=== PATIENT | male | born 1960 | race Caucasian/White ===

== ENCOUNTER 2019-05-26 07:58 | Day surgery (SDC) | payer OTHER, SELFPAY ==
--- NOTE | 2019-05-26 | PATH_ITS ---
[facility] Accession Number: [id number] . 01 Material submitted: . cecum - CECAL POLYP X2 . 02 Diagnosis: Cecum, Polyps x2, Biopsies: Tubular adenomas. V/05/27/2019 . 02 Electronically signed: . Meghan Cueto MD, Pathologist NPI- [id number] . 01 Gross description: . CECAL POLYP X2: Received in formalin are 4 fragment(s) of [place], soft tissue measuring 0.2 x 0.2 x 0.1 cm to 0.5 x 0.4 x 0.3 cm which is entirely submitted and submitted entirely in 1 cassette(s) /DMC /DMC . 02 Pathologist provided ICD-10: D12.0 . 02 CPT . 079265 Performed at: 01 [facility] [address] [id number] MD Bretin Cheney MD Phone: [phone] Performed at: 02 [facility] [address] [place], [place] [id number] MD Meghan Cueto MD Phone: [phone]
--- NOTE | 2019-05-26 07:47 | PM.HP.1 ---
History of Present Illness Date Patient Seen: 05/26/19 Chief complaint: [id number] Narrative: 59-year-old male who is here for colon polyp surveillance. No active GI symptoms at present. Prior colonoscopy report not available for review Patient History Social History household members: spouse Meds Home Medications Medication Instructions Recorded Confirmed Type aspirin [Aspir-81] 81 mg PO DAILY 05/26/19 05/26/19 History fenofibrate 145 mg PO DAILY 05/26/19 05/26/19 History lisinopril 5 mg PO DAILY 05/26/19 05/26/19 History metformin 500 mg PO BID 05/26/19 05/26/19 History rosuvastatin 10 mg PO DAILY 05/26/19 05/26/19 History Allergies Allergy/AdvReac Type Severity Reaction Status Date / Time No Known Drug Allergies Allergy Verified 05/26/19 08:34 Exam Narrative Exam Narrative: General: Patient is obese, not in apparent distress Cardiovascular: Regular rate and rhythm, no murmurs, rubs, or gallops; no evidence of edema; no palpable abdominal aortic aneurysm Gastrointestinal: Normoactive bowel sounds, soft, nontender, nondistended, no rebound tenderness, no hepatosplenomegaly, no evidence of hernia Assessment & Plan Assessment & Plan narrative: 59-year-old male here for colon polyp surveillance. No alarm symptoms at present Regarding the procedure(s), the risks and potential complications, benefits, and alternatives (including not doing the procedure) were discussed with the patient. The risks include but are not limited to bleeding, splenic injury, infection, perforation which may require surgical intervention, missed lesions, and adverse reactions to sedative medicines. After a question and answer period, the patient agreed to proceed with the procedure(s) and gives informed consent.
[2019-05-26 08:50] VITALS: BP 143/91; PULSE 72; RESP 16; TEMP 36.8; O2SAT 98; BMI 29.4
[2019-05-26] MEDS: SODIUM CHLORIDE 0.9% 1,000 ML 70 ML IV (08:58)
--- NOTE | 2019-05-26 09:37 | PM.OP.ENDO ---
Operative Date/Time/Diagnoses Date of procedure: 05/26/19 Procedure Notes Procedure in detail: Surgeon: Savage Barkley MD Procedure: Colonoscopy with polypectomy Preoperative diagnosis: Colon polyp surveillance Postoperative diagnosis: Cecal polyps x2 status post polypectomy; grade 1 internal hemorrhoids Medications: Conscious sedation using 6 mg IV of Midazolam and 100 mcg IV of Fentanyl Preanesthesia Assessment An H and P was performed/updated and the Px?s ASA class is 2. The procedure was discussed in detail with the patient. The potential risks and complications including infection, bleeding, missed lesions, perforation, need for surgery in case of perforation, prolonged hospital stay, and were explained. A brief question and answer period was allotted and once all questions were answered, informed consent was obtained. The patient was brought back to the procedure room and placed on standard monitoring. The patient?s vital signs were monitored continuously throughout the entire procedure. Prior to starting, a timeout was performed to confirm the patient?s identity, allergies, medications, and procedure. Procedure in detail The patient was placed in left lateral decubitus position and once adequate sedation was obtained a ERUM was performed. The digital rectal examination did not reveal any palpable lesions. The tip of the colonoscope was placed in the anal canal and advanced without difficulty all the way to the cecum which was identified by the appendiceal orifice and the ileocecal valve. Careful examination of all sierra of the colon was performed with irrigation of any residual stool. In the cecum there was note of 2 sessile polyps measuring 6-7 mm. These polyps were removed by means of cold snare. Resection and retrieval was complete with minimal bleeding. The remainder of the colon showed no further polyps Retroflexion was performed in the rectum which revealed grade 1 internal hemorrhoids The patient tolerated the procedure well and will be brought back to the recovery area to be discharged once criteria are met. The prep was judged to be good and adequate to identify polyps less than 5 mm. The withdrawal time was 9 minutes. The total physician intraservice time was 15 minutes. Complications There were no complications and estimated blood loss was minimal. Recommendations: Resume previous diet Continue outPx medications Follow up pathology results Repeat colonoscopy in 5 years An emergency contact number was given to the patient for any complications related to the procedure
[2019-05-26] MEDS: fentaNYL 250 MCG/5 ML INJ IV (09:47)
[2019-05-26] MEDS: MIDAZOLAM 5 MG/5 ML VIAL IV (09:47)
[2019-05-26 10:04] VITALS: BP 117/70; PULSE 63; RESP 14; TEMP 35.9; O2SAT 95
[2019-05-26 10:10] VITALS: BP 111/67; PULSE 66; RESP 12; O2SAT 94
[2019-05-26 10:15] VITALS: BP 113/61; PULSE 62; RESP 12; O2SAT 96
[2019-05-26 10:20] VITALS: BP 112/83; PULSE 64; RESP 16; TEMP 36.8; O2SAT 97
[2019-05-26 10:29] VITALS: BP 129/83; PULSE 71; RESP 15; TEMP 36.6; O2SAT 96
== END 2019-05-26 10:38 | disposition home or self-care (01) ==
PROVIDERS: Family Provider Internal Medicine; PCP Internal Medicine; Visit Provider Internal Medicine Gastroenterology
PROC: 0DJD8ZZ Inspection of Lower Intestinal Tract, Via Natural or Artificial Opening Endoscopic (ICD-10-PCS; CPT 45378; principal; 2019-05-26 09:30)
DX: Z86.010 Personal history of colon polyps (principal); D12.0 Benign neoplasm of cecum; K64.0 First degree hemorrhoids; E66.9 Obesity, unspecified; Z68.29 Body mass index [BMI] 29.0-29.9, adult
CPT/HCPCS: 45385; J2250; J3010

== ENCOUNTER → 2020-04-28 08:10 | Outpatient (CLI) | payer OTHER, SELFPAY ==
[2020-04-28 09:51] LABS: Cholesterol 135 mg/dL (140-199); HDL Cholesterol 31 mg/dL (40-60); LDL Cholesterol Calculated 48 mg/dL (<100); Triglycerides 280 mg/dL (35-150)
[2020-04-28 09:55] LABS: Vitamin D 25 Hydroxy (D3) 30.7 ng/mL (30.0-100.0)
[2020-04-28 10:30] LABS: Microalbumin Urine Random 11.8 mg/dL (0-1.6)
[2020-04-28 10:35] LABS: Creatinine Urine Random 199.9 mg/dL
[2020-04-28 10:53] LABS: Hemoglobin A1C% w Est Avg Glu 8.1 % (4.0-6.0)
== END ==
PROVIDERS: Family Provider Internal Medicine; PCP Student in an Organized Health Care Education/Training Program; Referring Provider Student in an Organized Health Care Education/Training Program; Visit Provider Student in an Organized Health Care Education/Training Program
DX: E11.9 Type 2 diabetes mellitus without complications (principal); E55.9 Vitamin D deficiency, unspecified
CPT/HCPCS: 36415; 80061; 82043; 82306; 82570; 83036

== ENCOUNTER → 2020-05-08 09:37 | Outpatient (CLI) | payer OTHER, SELFPAY ==
--- NOTE | 2020-05-08 09:38 | DI.US.S_ITS ---
PROCEDURE: US THYROID INDICATIONS: NODULE TECHNIQUE: Real-time scanning was performed of the thyroid gland, with image documentation. COMPARISON: [facility], US, US THYROID, 02/27/2018, 10:16. FINDINGS: Right: Thyroid lobe measures 5.5 x 1.7 x 1.7 cm, and is diffusely heterogeneous in echotexture. Left: Thyroid lobe measures 5.6 x 2.0 x 2.1 cm, and is diffusely heterogeneous in echotexture. Isthmus: 4.0 mm thick. Nodule number: 1 Location: Right superior Size: Increased at 1.8 x 1.0 x 1.5 cm. Composition: Solid Echogenicity: Hypoechoic Shape: wider than tall. Margins: Smooth Echogenic foci: None Total points: 4 ACR TI-RADS category: Moderately suspicious Nodule number: 2 Location: Right inferior Size: Increased at 2.3 x 1.5 x 1.8 cm. Composition: Solid Echogenicity: Hypoechoic Shape: wider than tall. Margins: Smooth Echogenic foci: Peripheral calcification Total points: 6 ACR TI-RADS category: Moderately suspicious Nodule number: 3 Location: Left mid inferior Size: Unchanged at 3.0 x 1.8 x 1.9 Composition: Mixed cystic and solid Echogenicity: Heterogeneous Shape: wider than tall. Margins: Smooth Echogenic foci: Macrocalcification Total points: 4 ACR TI-RADS category: Moderately suspicious IMPRESSION: Bilateral thyroid nodules as above. Recommend sonographically directed fine-needle aspiration involving the right #2 nodule which has increased in size. Continued sonographic surveillance of additional nodules recommended. ACR TI-RADS definitions and recommendations: TI-RADS 1 (benign): 0 points. FNA not needed. TI-RADS 2 (not suspicious): 2 points. FNA not needed. TI-RADS 3 (mildly suspicious): 3 points. * FNA if 2.5 cm or larger, follow up if 1.5 cm or larger (at 1, 3, and 5 years). TI-RADS 4 (moderately suspicious): 4-6 points. * FNA if 1.5 cm or larger, follow up if 1 cm or larger (at 1, 2, 3, and 5 years). TI-RADS 5 (highly suspicious): 7 points or more. * FNA if 1 cm or larger, follow up if 0.5 cm or larger (every year for 5 years). Dictated by: Leonard QUINONEZ Interpreted: Alphonso Swanson MD on 05/08/2020 at 10:23 Approved by: Alphonso Swanson M.D. on 05/08/2020 at 13:04
== END ==
PROVIDERS: Family Provider Internal Medicine; PCP Student in an Organized Health Care Education/Training Program; Referring Provider Student in an Organized Health Care Education/Training Program; Visit Provider Student in an Organized Health Care Education/Training Program
DX: E04.2 Nontoxic multinodular goiter (principal)
CPT/HCPCS: 76536

== ENCOUNTER → 2020-05-12 09:34 | Outpatient (CLI) | payer OTHER, SELFPAY ==
--- NOTE | 2020-05-12 | PATH_ITS ---
Note [facility] Accession Number: [id number] TESTS RESULT FLAG UNITS REF RANGE LAB Clinician Provided Cytology Information No. of containers..01 Other (Miscellaneous) No. of containers..04 Previously Prepared Cytology Slide RIGHT INFERIOR THYRO DIAGNOSIS: RIGHT INFERIOR THYRO INCONCLUSIVE. BETHESDA CATEGORY III. ATYPIA OF UNDETERMINED SIGNIFICANCE. COMMENT: The specimen is moderately cellular. Focal nuclear atypia is seen consisting of nuclear overlap, rare nuclear grooves, and slight clearing of chromatin. Pathologist ICD10: 01 R89.6 01 FINDINGS: Right: Thyroid lobe measures 5.5 x 1.7 x 1.7 cm, and is diffusely heterogeneous in echotexture. Left: Thyroid lobe measures 5.6 x 2.0 x 2.1 cm, and is diffusely heterogeneous in echotexture. Isthmus: 4.0 mm thick. Nodule number: 1 Location: Right superior Size: Increased at 1.8 x 1.0 x 1.5 cm. Composition: Solid Echogenicity: Hypoechoic Shape: wider than tall. Margins: Smooth Echogenic foci: None Total points: 4 ACR T I-RADS category: Moderately suspicious Nodule number: 2 Location: Right inferior Size: Increased at 2.3 x 1.5 x 1.8 cm. Composition: Solid Echogenicity: Hypoechoic Shape: wider than tall. Margins: Smooth Echogenic foci: Peripheral calcification Total points: 6 ACR T I-RADS category: Moderately suspicious Nodule number: 3 Location: Left mid inferior Size: Unchanged at 3.0 x 1.8 x 1.9 Composition: Mixed cystic and solid Echogenicity: Heterogeneous Shape: wider than tall. Margins: Smooth Echogenic foci: Macrocalcification Total points: 4 ACR T I-RADS category: Moderately suspicious IMPRESSION: Bilateral thyroid nodules as above. Recommend sonographically directed fine- needle aspiration involving the right #2 nodule which has increased in size. Continued sonographic surveillance of additional nodules recommended. Alisia Allen MD, Pathologist NPI- [id number] Jamie Garrison, Heavy Forger Helper (ASCP) 30 CC, RED, CLEAR RECIEVED: IN CYTOLYT WITH 7 ALCOHOL FIXED AND 7 QUICK STAINED SLIDES ALSO 1 RNA VIAL WAS RECEIVED FOR FURTHER TESTING. /VDU 05/15/2020 0651 Local FLAG LEGEND: L-Low Normal,H-High Normal,LL-Alert Low,HH-Alert High <-Panic Low,>-Panic High,A-Abnormal,AA-Critical Abnormal Performed at: 01 =Z [facility] [address], [place] [address] Bertin Cheney MD, Performed at: 01 [facility] [address], [place], [place] [id number] MD Bertin Cheney MD Phone: [phone]
--- NOTE | 2020-05-12 09:35 | DI.US.S_ITS ---
PROCEDURE: US FINE NEEDLE ASPIRATION INDICATIONS: F/u abnormal ultrasound TECHNIQUE: The indications, alternatives, benefits, risks, and complications of the procedure were explained to the patient. Written informed consent was obtained and placed in the chart. The thyroid region was examined sonographically and a site was chosen for ultrasound guided percutaneous sampling. The skin was prepared and draped in the usual fashion, and anesthetized with 1% lidocaine infiltrated from the skin down to the thyroid gland. Multiple passes were then performed, with contents emptied into an appropriate pathology specimen container. A bandage was applied to the area of access at completion of the study. COMPARISON: None. FINDINGS: Location(s) of lesion(s) sampled: Dominant enlarging right thyroid lobe nodule [employer]: 25 gauge hypodermic needles, 6, and 1 22 gauge aspiration needle. Number of passes: 7 total Medications: 1% lidocaine for local anaesthesia. Complications: None. IMPRESSION: Successful ultrasound-guided thyroid nodule fine needle aspiration, with cytology results pending. Please see chart below for management recommendations based on cytology results. [place] [facility] ReportingRecommendationsNon-diagnostic* Repeat US-guided FNA, with on-site cytology evaluation if possible. * Repeated non-diagnostic nodules without high suspicion US features: close observation vs surgical consult. * Consider surgery if nodule has high suspicion US features, grows >20% in 2 dimensions on followup, or patient has clinical risk factors for malignancy. Benign* If nodule has high suspicion US features: repeat US and FNA within 12 months. * If nodule has low to intermediate suspicion US features: repeat US at 12-24 months. If nodule grows (20% increase in at least 2 dimensions, with minimal increase of 2 mm or >50% change in volume), or development of new suspicious US features, then repeat FNA or continue followup. * If nodule has very low suspicion US features: followup US at >24 months. Atypia of undetermined significance, follicular lesion of undetermined significanceRepeat FNA, molecular testing, followup US, or surgical consult.Follicular neoplasm, suspicious for follicular neoplasmSurgical consult; also consider molecular testing. Suspicious for malignancySurgical consult.MalignantSurgical consult. Dictated by: Erik Cope M.D. on 05/12/2020 at 14:15 Approved by: Erik Cope M.D. on 05/12/2020 at 14:16
== END ==
PROVIDERS: PCP Student in an Organized Health Care Education/Training Program; Referring Provider Student in an Organized Health Care Education/Training Program; Visit Provider Student in an Organized Health Care Education/Training Program
DX: E04.1 Nontoxic single thyroid nodule (principal)
CPT/HCPCS: 10005

== ENCOUNTER → 2020-07-05 08:00 | Outpatient (CLI) | payer OTHER, SELFPAY ==
[2020-07-05 09:28] LABS: TSH w/ Reflex to FT4 1.19 uIU/mL (0.47-4.68)
== END ==
PROVIDERS: PCP Student in an Organized Health Care Education/Training Program; Referring Provider Student in an Organized Health Care Education/Training Program; Visit Provider Student in an Organized Health Care Education/Training Program
DX: E04.1 Nontoxic single thyroid nodule (principal)
CPT/HCPCS: 36415; 84443

== ENCOUNTER → 2020-07-20 11:44 | Outpatient (CLI) | payer OTHER, SELFPAY ==
[2020-07-20 12:51] LABS: Hemoglobin A1C% w Est Avg Glu 5.9 % (4.0-6.0)
[2020-07-20 15:32] LABS: Creatinine Urine Random 126.9 mg/dL
== END ==
PROVIDERS: PCP Student in an Organized Health Care Education/Training Program; Referring Provider Student in an Organized Health Care Education/Training Program; Visit Provider Student in an Organized Health Care Education/Training Program
DX: E11.9 Type 2 diabetes mellitus without complications (principal); I10 Essential (primary) hypertension
CPT/HCPCS: 36415; 82043; 82570; 83036

== ENCOUNTER → 2020-07-24 10:09 | Outpatient (CLI) | payer OTHER, SELFPAY ==
--- NOTE | 2020-07-24 | PATH_ITS ---
Note [facility] Accession Number: [id number] TESTS RESULT FLAG UNITS REF RANGE LAB Clinician Provided Cytology Information No. of containers..01 Other (Miscellaneous) No. of containers..06 Previously Prepared Cytology Slide LEFT THYROID NODULE Clinician ICD10: E04.1 DIAGNOSIS: 01 LEFT THYROID NODULE INADEQUATE, INSUFFICIENT CELLS FOR STUDY. BETHESDA CATEGORY I. NONDIAGNOSTIC: VIRTUALLY ACELLULAR SPECIMEN. Pathologist ICD10: E04.1 01 Alisia Allen MD, Pathologist NPI- [id number] Odalys Barriga, Embroidery Worker ([facility]) 01 30 CC, RED, CLEAR RECIEVED: IN CYTOLYT WITH 8 ALCOHOL FIXED AND 8 QUICK STAINED SLIDES ALSO 1 RNA VIAL WAS RECEIVED FOR FURTHER TESTING. /VDU 07/25/[address] [place] [id number] FLAG LEGEND: L-Low Normal,H-High Normal,LL-Alert Low,HH-Alert High <-Panic Low,>-Panic High,A-Abnormal,AA-Critical Abnormal Performed at: 01 =Z [facility] [address], [place] [address] Bertin Cheney MD, Specimen Comment: A courtesy copy of this report has been sent to [phone] Performed at: 01 [facility] [address], [place], [place] [id number] MD Bertin Cheney MD Phone: [phone]
--- NOTE | 2020-07-24 10:10 | DI.US.S_ITS ---
PROCEDURE: US FINE NEEDLE ASPIRATION INDICATIONS: LEFT THYROID NODULE TECHNIQUE: The indications, alternatives, benefits, risks, and complications of the procedure were explained to the patient. Written informed consent was obtained and placed in the chart. The area of interest was examined sonographically and a site was chosen for ultrasound guided percutaneous sampling. The skin was prepared and draped in the usual fashion, and anesthetized with 1% lidocaine infiltrated from the skin down to the lesion. Multiple passes were then performed, with contents emptied into an appropriate pathology specimen container. A bandage was applied to the area of access at completion of the study. COMPARISON: [facility], US FINE NEEDLE ASPIRATION, 05/12/2020, 10:16. FINDINGS: Location(s) of lesion(s) sampled: Mid to lower pole left thyroid lobe [place]: 25 gauge hypodermic needles. Number of passes: . 8 Medications: 1% lidocaine for local anaesthesia. Complications: None. IMPRESSION: Successful ultrasound-guided left thyroid lobe nodule fine needle aspiration, with cytology results pending. Dictated by: Rik Perez M.D. on 07/24/2020 at 14:47 Approved by: Rik Perez M.D. on 07/24/2020 at 14:47
== END ==
PROVIDERS: PCP Student in an Organized Health Care Education/Training Program; Referring Provider Student in an Organized Health Care Education/Training Program; Visit Provider Student in an Organized Health Care Education/Training Program
DX: E04.1 Nontoxic single thyroid nodule (principal)
CPT/HCPCS: 10005

== ENCOUNTER → 2020-12-20 12:10 | Outpatient (CLI) | payer OTHER, SELFPAY ==
[2020-12-20 13:47] LABS: Hemoglobin A1C% w Est Avg Glu 6.7 % (4.0-6.0)
[2020-12-20 13:52] LABS: BUN Creatinine Ratio 18.8 (6-22); Blood Urea Nitrogen 16 mg/dL (9-20); Estimated Glomerular Filt Rate > 60.0 mL/min (>60)
== END ==
PROVIDERS: PCP Student in an Organized Health Care Education/Training Program; Referring Provider Student in an Organized Health Care Education/Training Program; Visit Provider Student in an Organized Health Care Education/Training Program
DX: E11.29 Type 2 diabetes mellitus with other diabetic kidney complication (principal); R80.9 Proteinuria, unspecified
CPT/HCPCS: 36415; 82565; 83036; 84520

== ENCOUNTER → 2021-07-05 07:54 | Outpatient (CLI) | payer OTHER, SELFPAY ==
[2021-07-05 08:58] LABS: BUN Creatinine Ratio 19.2 (6-22); Blood Urea Nitrogen 19 mg/dL (9-20); Estimated Glomerular Filt Rate > 60.0 mL/min (>60)
== END ==
PROVIDERS: PCP Student in an Organized Health Care Education/Training Program; Referring Provider Student in an Organized Health Care Education/Training Program; Visit Provider Student in an Organized Health Care Education/Training Program
DX: E11.29 Type 2 diabetes mellitus with other diabetic kidney complication (principal); R80.9 Proteinuria, unspecified; Z12.5 Encounter for screening for malignant neoplasm of prostate
CPT/HCPCS: 36415; 82565; 83036; 84520; G0103

== ENCOUNTER → 2022-01-22 07:36 | Outpatient (CLI) | payer OTHER, SELFPAY ==
[2022-01-22 08:25] LABS: Hemoglobin A1C% w Est Avg Glu 6.9 % (4.0-6.0)
[2022-01-22 08:56] LABS: BUN Creatinine Ratio 16.7 (6-22); Blood Urea Nitrogen 16 mg/dL (9-20); Carbon Dioxide 25 mmol/L (22-32); Chloride 107 mmol/L (98-107); Creatinine Urine Random 155.1 mg/dL; Estimated Glomerular Filt Rate > 60.0 mL/min (>60); Glucose 163 mg/dL (80-110); HEMOLYSIS < 15 (0-50); Potassium 4.5 mmol/L (3.4-5.1); Sodium 141 mmol/L (137-145)
[2022-01-22 09:01] LABS: Microalbumin Urine Random 15.2 mg/dL (0-1.6)
== END ==
PROVIDERS: PCP Student in an Organized Health Care Education/Training Program; Referring Provider Student in an Organized Health Care Education/Training Program; Visit Provider Student in an Organized Health Care Education/Training Program
DX: E11.29 Type 2 diabetes mellitus with other diabetic kidney complication (principal); R80.9 Proteinuria, unspecified; I10 Essential (primary) hypertension
CPT/HCPCS: 36415; 80048; 82043; 82570; 83036

== ENCOUNTER → 2022-05-10 08:21 | Outpatient (CLI) | payer OTHER, SELFPAY ==
[2022-05-10 09:41] LABS: BUN Creatinine Ratio 18.9 (6-22); Blood Urea Nitrogen 18 mg/dL (9-20); Estimated Glomerular Filt Rate > 60 mL/min (>60)
[2022-05-10 10:23] LABS: Vitamin B12 326 pg/mL (239-931)
[2022-05-10 10:31] LABS: Hemoglobin A1C% w Est Avg Glu 6.3 % (4.0-6.0)
== END ==
PROVIDERS: PCP Student in an Organized Health Care Education/Training Program; Referring Provider Student in an Organized Health Care Education/Training Program; Visit Provider Student in an Organized Health Care Education/Training Program
DX: E11.29 Type 2 diabetes mellitus with other diabetic kidney complication (principal); R80.9 Proteinuria, unspecified; T38.3X5A Adverse effect of insulin and oral hypoglycemic [antidiabetic] drugs, initial encounter
CPT/HCPCS: 36415; 82565; 82607; 83036; 84520

== ENCOUNTER → 2022-06-17 10:31 | Outpatient (CLI) | payer OTHER, SELFPAY ==
--- NOTE | 2022-06-17 10:32 | DI.US.S_ITS ---
PROCEDURE: US THYROID INDICATIONS: 2yr F/u of thyroid nodules TECHNIQUE: Real-time scanning was performed of the thyroid gland, with image documentation. COMPARISON: [facility], US, US THYROID, 05/08/2020, 9:49. FINDINGS: Right: Thyroid lobe measures 4.8 x 2.2 x 1.5 cm, and is homogeneous in echotexture. Left: Thyroid lobe measures 6.0 x 2.1 x 2.5 cm, and is homogenous in echotexture. Isthmus: 3 mm thick. Nodule number: 1 Location: Right superior Size: 0.7 x 0.6 x 0.7 cm. Previously measured 1.8 x 1.0 x 1.5 cm Composition: Predominantly solid Echogenicity: Isoechoic Shape: wider than tall. Margins: Smooth Echogenic foci: None Total points: 3 ACR TI-RADS category: 3 Nodule number: 2 Location: Right inferior Size: 2.8 x 1.8 x 2.0 cm. Previously measured 2.3 x 1.5 x 1.8 cm. Composition: Solid Echogenicity: Hypoechoic Shape: wider than tall. Margins: Smooth Echogenic foci: None Total points: 4 ACR TI-RADS category: 4 Nodule number: 3 Location: Left mid Size: 2.9 x 1.8 x 1.9 cm. 3.0 x 1.8 x 1.9 Composition: Solid Echogenicity: Isoechoic Shape: wider than tall. Margins: Smooth Echogenic foci: Peripheral Total points: 5 ACR TI-RADS category: 4 IMPRESSION: 1. Right T3 nodule under 1.5 cm in diameter. No further follow-up recommended. 2. Right T4 nodule greater than 2.5 cm in diameter. Fine needle aspiration recommended. This has increased in size from the prior study from May 08, 2020. 3. Left T4 nodule stable in size from the prior study. If this has been previously biopsied, continued surveillance recommended. Otherwise, consider fine needle aspiration. ACR TI-RADS definitions and recommendations: TI-RADS 1 (benign): 0 points. FNA not needed. TI-RADS 2 (not suspicious): 2 points. FNA not needed. TI-RADS 3 (mildly suspicious): 3 points. * FNA if 2.5 cm or larger, follow up if 1.5 cm or larger (at 1, 3, and 5 years). TI-RADS 4 (moderately suspicious): 4-6 points. * FNA if 1.5 cm or larger, follow up if 1 cm or larger (at 1, 2, 3, and 5 years). TI-RADS 5 (highly suspicious): 7 points or more. * FNA if 1 cm or larger, follow up if 0.5 cm or larger (every year for 5 years). Dictated by: Nessa Donovan M.D. on 06/17/2022 at 14:41 Approved by: Nessa Donovan M.D. on 06/17/2022 at 14:47
== END ==
PROVIDERS: PCP Student in an Organized Health Care Education/Training Program; Referring Provider Student in an Organized Health Care Education/Training Program; Visit Provider Student in an Organized Health Care Education/Training Program
DX: E04.2 Nontoxic multinodular goiter (principal)
CPT/HCPCS: 76536

== ENCOUNTER → 2022-12-19 07:58 | Outpatient (CLI) | payer OTHER, SELFPAY ==
[2022-12-19 10:08] LABS: Hemoglobin A1C% w Est Avg Glu 7.1 % (4.0-6.0)
[2022-12-19 10:12] LABS: BUN Creatinine Ratio 18.9 (6-22); Blood Urea Nitrogen 18 mg/dL (9-20); Calcium 8.7 mg/dL (8.4-10.2); Carbon Dioxide 25 mmol/L (22-32); Chloride 106 mmol/L (98-107); Cholesterol 167 mg/dL (140-199); Estimated Glomerular Filt Rate > 60 mL/min (>60); Glucose 166 mg/dL (80-110); HDL Cholesterol 32 mg/dL (40-60); HEMOLYSIS < 15 (0-50); Potassium 4.6 mmol/L (3.4-5.1); Sodium 139 mmol/L (137-145); Triglycerides 449 mg/dL (35-150)
[2022-12-19 10:16] LABS: Creatinine Urine Random 156.3 mg/dL
[2022-12-19 10:36] LABS: Microalbumi Creatinin Ratio Ur 219.4 ug/mg CR (<30); Microalbumin Urine Random 34.3 mg/dL (0-1.6)
== END ==
PROVIDERS: PCP Student in an Organized Health Care Education/Training Program; Referring Provider Student in an Organized Health Care Education/Training Program; Visit Provider Student in an Organized Health Care Education/Training Program
DX: E11.29 Type 2 diabetes mellitus with other diabetic kidney complication (principal); E11.69 Type 2 diabetes mellitus with other specified complication; E78.5 Hyperlipidemia, unspecified; I10 Essential (primary) hypertension; R80.9 Proteinuria, unspecified
CPT/HCPCS: 36415; 80048; 80061; 82043; 82570; 83036

== ENCOUNTER → 2023-04-18 09:36 | Outpatient (CLI) | payer MEDICARE, SELFPAY ==
[2023-04-18 11:15] LABS: Alanine Aminotransferase 24 IU/L (<50); Albumin 4.3 g/dL (3.5-5.0); Albumin Globulin Ratio 1.5 (1.0-2.8); Alkaline Phosphatase 90 U/L (38-126); Aspartate Aminotransferase 27 IU/L (17-59); BUN Creatinine Ratio 22.2 (6-22); Bilirubin Total 0.6 mg/dL (0.2-1.3); Blood Urea Nitrogen 20 mg/dL (9-20); Calcium 8.8 mg/dL (8.4-10.2); Carbon Dioxide 24 mmol/L (22-32); Chloride 108 mmol/L (98-107); Estimated Glomerular Filt Rate > 60 mL/min (>60); Globulin 2.9 g/dL (1.7-4.1); Glucose 160 mg/dL (80-110); HEMOLYSIS 17 (0-50); Potassium 4.6 mmol/L (3.4-5.1); Sodium 139 mmol/L (137-145); Total Protein 7.2 g/dL (6.3-8.2); Triglycerides 517 mg/dL (35-150)
[2023-04-18 11:46] LABS: Prostate Specific Antigen Scrn 0.436 ng/mL (0.1-4.0)
[2023-04-18 11:51] LABS: Creatinine Urine Random 127.5 mg/dL
[2023-04-18 12:04] LABS: Hep C Virus Ab w/Reflex Quant NEGATIVE s/c (NEGATIVE)
[2023-04-18 12:13] LABS: Microalbumi Creatinin Ratio Ur 217.2 ug/mg CR (<30); Microalbumin Urine Random 27.7 mg/dL (0-1.6)
[2023-04-19 04:09] LABS: Labcorp Hemoglobin (Hb) A1c 6.6 % (4.8-5.6)
== END ==
PROVIDERS: PCP Student in an Organized Health Care Education/Training Program; Referring Provider Student in an Organized Health Care Education/Training Program; Visit Provider Student in an Organized Health Care Education/Training Program
DX: Z12.5 Encounter for screening for malignant neoplasm of prostate; E11.29 Type 2 diabetes mellitus with other diabetic kidney complication; E78.5 Hyperlipidemia, unspecified; R80.9 Proteinuria, unspecified; Z11.59 Encounter for screening for other viral diseases; I10 Essential (primary) hypertension
CPT/HCPCS: 36415; 80053; 82043; 82570; 83036; 84478; 86803; G0103

== ENCOUNTER → 2023-08-27 08:10 | Outpatient (CLI) | payer MEDICARE, OTHER, SELFPAY ==
[2023-08-27 10:08] LABS: TSH w/ Reflex to FT4 1.24 uIU/mL (0.47-4.68)
== END ==
PROVIDERS: PCP Family Medicine; Referring Provider Family Medicine; Visit Provider Family Medicine
DX: E04.1 Nontoxic single thyroid nodule (principal); I10 Essential (primary) hypertension
CPT/HCPCS: 36415; 84443

== ENCOUNTER → 2023-09-02 07:13 | Outpatient (CLI) | payer MEDICARE, OTHER, SELFPAY ==
[2023-09-02 09:20] LABS: Cholesterol 248 mg/dL (140-199); HDL Cholesterol 35 mg/dL (40-60); Triglycerides 447 mg/dL (35-150)
== END ==
PROVIDERS: PCP Family Medicine; Referring Provider Family Medicine; Visit Provider Family Medicine
DX: I10 Essential (primary) hypertension (principal); E11.69 Type 2 diabetes mellitus with other specified complication; E78.5 Hyperlipidemia, unspecified; E11.29 Type 2 diabetes mellitus with other diabetic kidney complication; R80.9 Proteinuria, unspecified
CPT/HCPCS: 36415; 80061

== ENCOUNTER → 2024-01-23 06:28 | Outpatient (CLI) | payer MEDICARE, OTHER, SELFPAY ==
[2024-01-23 08:54] LABS: Cholesterol 244 mg/dL (140-199); HDL Cholesterol 32 mg/dL (40-60)
[2024-01-23 09:02] LABS: Triglycerides 674 mg/dL (35-150)
== END ==
PROVIDERS: PCP Family Medicine; Referring Provider Family Medicine; Visit Provider Family Medicine
DX: E78.5 Hyperlipidemia, unspecified (principal); E11.69 Type 2 diabetes mellitus with other specified complication; E11.29 Type 2 diabetes mellitus with other diabetic kidney complication; R80.9 Proteinuria, unspecified; I10 Essential (primary) hypertension
CPT/HCPCS: 36415; 80061

== ENCOUNTER → 2024-02-17 07:33 | Outpatient (CLI) | payer MEDICARE, OTHER, SELFPAY | LOC: LAB 07:34 | PROVIDERS: PCP Family Medicine; Referring Provider Family Medicine; Visit Provider Family Medicine | DX: R68.82 Decreased libido (principal) | CPT/HCPCS: 36415; 84402; 84403 ==

== ENCOUNTER → 2024-03-05 06:58 | Outpatient (CLI) | payer MEDICARE, OTHER, SELFPAY ==
[2024-03-15 14:14] LABS: Percent Free Testosterone 2.83 % (1.50-4.20); Testosterone Total 307.3 ng/dL (264.0-916.0)
== END ==
PROVIDERS: PCP Family Medicine; Referring Provider Family Medicine; Visit Provider Family Medicine
DX: R68.82 Decreased libido (principal)
CPT/HCPCS: 36415; 84402; 84403

== ENCOUNTER → 2024-03-19 06:57 | Outpatient (CLI) | payer MEDICARE, OTHER, SELFPAY | PROVIDERS: PCP Family Medicine; Referring Provider Family Medicine; Visit Provider Family Medicine | DX: R68.82 Decreased libido (principal) | CPT/HCPCS: 36415; 84402; 84403 ==